=== PATIENT | female | born 2005 | race Hispanic/Latino ===

== ENCOUNTER 2025-06-06 04:31 | Emergency (ER) | payer OTHER ==
[~2025-06-06] VITALS: Ht 152.4 cm; Wt 104.5 kg
[2025-06-06] MEDS ORDERED: ORTH1TAB8 PO (07:27)
[2025-06-06] MEDS ORDERED: CVS500CA5 PO (07:27)
[2025-06-06 07:37] VITALS: TEMP 98.3
[2025-06-06 08:00] VITALS: BP 116/57; O2SAT 96
[2025-06-06] MEDS ORDERED: ONDA-282 PO (08:12)
[2025-06-06] MEDS ORDERED: VENTAER INH (08:12)
[2025-06-06] MEDS: ONDANSETRON 4MG ORAL DISINTEGRATING TAB PO ONE (08:25)
== END 2025-06-06 08:37 | disposition home or self-care (01) ==
LOC: M ED 04:31
DX: J09.X2 Influenza due to identified novel influenza A virus with other respiratory manifestations (principal)